=== PATIENT | female | born 1995 | race Caucasian/White ===

== ENCOUNTER 2018-12-19 08:02 | Inpatient (IN) ==
[2018-12-19 07:18] LABS: Basophils # 0.1 K/mcL (0.0-0.2); Basophils % 0.4 %; Eosinophils # 0.1 K/mcL (0.0-0.6); Eosinophils % 0.7 %; Hemoglobin 11.2 g/dL (11.5-15.4); Immature Granulocytes % 1.3 % (0-4); Lymphocytes # 2.3 K/mcL (0.6-4.6); Mean Corpuscular HGB Conc 33.9 g/dL (31.6-35.5); Mean Corpuscular Hemoglobin 29.9 pg (28.0-33.3); Mean Corpuscular Volume 88.2 fL (83.0-100.0); Mean Platelet Volume 11.6 fL (9.4-12.4); Monocytes % 7.2 %; Platelet Count 183 K/mcL (140-400); Red Blood Count 3.74 M/mcL (3.82-4.97); Red Cell Distribution Width 13.4 % (11.5-14.5); Segmented Neutrophils % 73.4 %; White Blood Count 13.6 K/mcL (4.3-11.1)
--- NOTE | 2018-12-19 07:19 | OB/GYN History & Physical ---
Date of Encounter: 12/19/18 Time of Encounter: 07:14 Assessment and Plan (1) 38 weeks gestation of Current visit: Yes Status: Acute admitted for delivery (2) SROM (spontaneous rupture of membranes) Current visit: Yes Status: Acute admitted for delivery speculum exam: + Pooling with clear fluid noted will augment labor with pitocin GBS: Negative History of Present Illness Chief complaint: SROM HPI: Ms. Muhammad is a 23 year old female @ 38w4d presents to labor and delivery with complaints of SROM at 0200. Patient denies any color or odor to fluid. Patient reports irregular contractions. Denies VB. Patient reports good movement. Patient denies any complications with current . Patient receives care with Dr. Willard. Blood type: O Negative Rubella: Immune Hep B: Non-reactive GBS: Negative Past Med Surg Social Fam HX - Past Medical History Source: patient Medical history: no medical history Psychiatric history: no psych history - Past Surgical History Surgical History: no surgical history - Social History Smoking Status: Never smoker Alcohol use: none Drug use: none Current living situation: Home - Independent Recent Out of Country Travel Within the Last 8 Weeks: No Exposure or Possible Exposure to Illness During Travel: No - Family History Mother Living Status: Still Living Hx Family Cardiac Disorders: No Hx Family Respiratory Disorders: No Hx Family Cancer: No Hx Family GI Disorders: No Hx Family Genitourinary Disorders: No Hx Family Endocrine Disorder: No Hx Family Musculoskeletal Disorders: No Hx Family Neuromuscular Disorders: No Hx Family Neurologic Disorders: No Hx Family HEENT Disorders: No Hx Family Autoimmune Disorders: No Hx Family Reproductive Disorders: No Hx Family Psychosocial Disorders: No Hx Family Medical Disorders: No Obstetrical History - Pregnancies : 1 Para: 0 Term: 0 : 0 Ab's: 0 Livin Medications and Allergies Ferrous Sulfate 325 mg PO DAILY 12/19/18 [History] Formula Tablet 1 tab PO DAILY 12/19/18 [History] Allergy/AdvReac Type Severity Reaction Status Date / Time No Known Allergies Allergy Verified 12/19/18 06:11 Review of System OB - Constitutional Constitutional ROS IM: no chills, no fever(s), no headache(s) - Cardiovascular Cardiovascular: no chest pain - Respiratory Respiratory: no cough, no dyspnea - Gastrointestinal Gastrointestinal: no constipation, no diarrhea, no heartburn, no nausea, no vomiting - Genitourinary Genitourinary: vaginal discharge (per HPI), no abnormal vaginal bleeding, no dysuria, no flank pain, no urinary frequency, no urinary hesitancy, no vaginal odor Exam - Vital Signs Vital signs: Initial Vital Signs Resp BP 15 117/72 12/19/18 06:02 12/19/18 06:02 - Constitutional Constitutional: well developed, well nourished, no acute distress, average body habitus - HEENT HEENT: Normocephaly, Mucus Membranes Moist - Neck Neck exam: full ROM, supple - Lungs Respiratory exam: CTAB - Cardiovascular Cardiovascular exam: RRR, +S1, +S2 - Abdomen Abdomen: Present: bowel sounds normal, gravid, non tender - Extremities Extremities exam: full ROM, normal capillary refill, normal inspection Deep Tendon Reflex Grade: 2+ Normal - Cervix Dilation: 3 Effacement: 70 - Uterus Uterus exam: Present: normal size, normal contour - Anus/Rectum Anus/Rectum: Present: normal perianal skin - Comments Comments: FHR 135 bpm moderate variability +15x15 accels no decels noted at this time. Contractions 2-3 min apart. Cat. 1 tracing Results All other labs normal. - VTE Reasons for not Prescribing Prophylaxis: Treatment not Indicated - Low risk for VTE
--- NOTE | 2018-12-19 07:31 | Anesthesia Evaluation PreOp ---
Date of Encounter: 12/19/18 Time of Encounter: 07:16 - Past History Planned Operation: del, G1 38wk SROM Cardiac History: Denies any Significant Hx Pulmonary History: Denies Any Significant HX GLOBAL RISK MANAGEMENT DIRECTOR History: Denies Any Significant HX Other Medical History: Denies Any Significant HX Anesthesia History: No Prior Anesthetic Complications, Past Anesthesia (denies any family comp.) Alcohol Use: none Drug use: none Medications and Allergies Ferrous Sulfate 325 mg PO DAILY 12/19/18 [History] Formula Tablet 1 tab PO DAILY 12/19/18 [History] Allergy/AdvReac Type Severity Reaction Status Date / Time No Known Allergies Allergy Verified 12/19/18 06:11 Anesthesia Results - Labs 12/19/18 06:50 Anesthesia Exam - HEENT Pupil (Motor): Pupils equal Mallampati: II Teeth: Normal Oral Opening: Greater than 3 - GLOBAL RISK MANAGEMENT DIRECTOR LOC: Oriented GLOBAL RISK MANAGEMENT DIRECTOR Motor: Normal RUE, Normal LUE, Normal RLE, Normal LLE, Normal Face GLOBAL RISK MANAGEMENT DIRECTOR Sensory: Normal: RUE, LUE, RLE, LLE, Face - Cardiac Rhythm: Regular Murmur: None - Pulmonary Breath Sounds: bilateral Clear Respiratory Effort: Symmetrical Anesthesia Assess/Plan ASA Score: 2 Level of consciousness: Cooperative, Oriented Anesthetic Plan: General, Spinal, Epidural Monitoring Plan: Standard Monitors Recovery Plan: PACU
[~2018-12-19 08:02] MED LIST: *HR* Nalbuphine 10 MG/ML AMPUL IVP PRN; Epidural Premix (fent/bupiv) 110 ML EP SCH; Famotidine 20 MG/2 ML VIAL IVP PRN; Lidocaine 1% 20 ML MDV INFILT PRN; Metoclopramide 10 MG/2 ML VIAL IVP PRN; Naloxone 0.4 MG/ML INJ IVP PRN; Ondansetron 4 MG/2 ML VIAL IVP PRN; Oxytocin 20 units/ LR 1000 mL 20 UNIT/1,000 ML BAG IVC SCH; Ringers Solution, Lactated 1,000 ML IVC SCH
--- NOTE | 2018-12-19 13:23 | Anesthesia Procedures ---
Date of Encounter: 12/19/18 Time of Encounter: 12:18 Procedures: Anesthesia - Epidural/Spinal Patient ID/Chart reviewed: Yes Patient examined: Yes OB Eval: Gestational age: term OB Eval: : 1 OB Eval: Contractions: Non-stressed pattern Consent Obtained: Yes Supplemental Oxygen: None/Room Air Site Prep: Aseptic Technique, Sterile prep and drape, 0.5% Chlorhexidine/Alcohol Patient position: upright Local Anesthetic: Lidocaine 1% Amount of Local Anesthetic used: 2 Touhy Needle Gauge: 18 Touhy Needle Depth (cm): 6 Catheter Depth at Skin (cm): 10 Test Dose (1.5% Lido + Epi): Volume given (mls): 4 Test Dose Result: Negative Loading Dose: Other: 10ml from solution Loading Dose Administered: Thru Catheter Infusion Med: 0.125% Bupivacaine w/ 2 mcg/ml Fentanyl Infusion Rate (mls/hr): [address]: Tegaderm, Tape Interspace Used: L3-L4 Loss of Resistance (NINA): Yes (saline) Blood: No CSF: Yes (25g purposeful ) Paresthesia: No Procedure: vss though out procedure, FHR stable per team, post procedure mild dec in BP tx with lateral turn, IV fluids, (2) 50mcg joanne IV
--- NOTE | 2018-12-19 14:37 | OB Labor Progress Note ---
Date of Encounter: 12/19/18 Time of Encounter: 14:35 Labor Progress Note - Subjective Subjective: Resting comfortably with epidural in place - Vital Signs Vital Signs: VSS - Cervix Cervix: 9/90/0 - Heart Tones Heart Tones: 120 moderate variability with 15 x 15 accels and variables with contractions - Todd Mission Todd Mission: Contractions every 4 minutes - Plan Plan: Continue routine labor management GBS negative Anticipate vaginal delivery POC per consult with Dr Ku
[2018-12-19] MEDS ORDERED: Propofol 500 MG/50 ML INFUS..BTL ONE (15:57)
[2018-12-19] MEDS ORDERED: Lidocaine/EPI 1:200k 2% PF 20 ML VIAL ONE (15:59)
[2018-12-19] MEDS ORDERED: *HR* Oxytocin 10 UNIT/ML VIAL IM ONE (16:07)
[2018-12-19] MEDS ORDERED: *HR* FentaNYL (PF) 100 MCG/2 ML VIAL ONE (16:12)
[2018-12-19] MEDS ORDERED: *HR* Morphine Sulfate/PF 10 MG/10 ML AMPUL ONE (16:12)
[2018-12-19] MEDS ORDERED: *HR* Succinylcholine 200 MG/10 ML VIAL IVP ONE (16:21)
--- NOTE | 2018-12-19 16:24 | Event Note ---
Date of Encounter: 12/19/18 Time of Encounter: 16:00 Called to room when nurse pushing with patient and tones were down for 3 minutes. Attempted to push with patient without success. Called Dr ku to room at tones down for [address] Ku assumed care at this point.
[2018-12-19] MEDS ORDERED: Ondansetron 4 MG/2 ML VIAL ONE (16:28)
--- NOTE | 2018-12-19 17:27 | Anesthesia Evaluation Post Op ---
Date of Encounter: 12/19/18 Time of Encounter: 17:26 - Vital Signs Vital Signs: vss - Lungs Lungs: Clear Ascult./Percussion - Airway Airway: Non-obstructed - Mental Status Mental Status: Alert & Oriented, Answers Appropriately - Pain Pain Scale used: Jordy (Faces) - Nausea Vomiting Nausea Vomiting: Not Present - Hydration Hydration: Fox catheter - Discharge PostOp Status: Transfer Patient to floor (when criteria met)
[2018-12-19] MEDS ORDERED: *HR* HYDROMORPHONE 2 MG/ML VIAL ONE (17:37)
--- NOTE | 2018-12-19 17:37 | OB/GYN Procedure Note ---
Section - Date of procedure: 12/19/18 Preop diagnosis: category 3 FHT tracing Post-op diagnosis: same Procedure: primary low transverse Surgeon: Taj Ku Quantitated Blood Loss: 400 Was there an billing and accounting staff assistant present: Yes Leasing Specialist: Paul Kirk Anesthesia Type: Epidural section complications: none Disposition: L&D Recovery Room Specimens: Placenta, Cord segment, Cord blood - Narrative Narrative: The patient was taken to the operating room where epidural anesthesia was found to be adequate. The patient was prepped with Betadine and draped in the usual sterile fashion in the dorsal supine position with a left-west tilt. A Pfannenstiel skin incision was made with the scalpel and carried through to the underlying layer of fascia. The fascia was incised in the midline and extended laterally and bluntly. Yelena clamps were used to elevate the superior aspect of the fascial incision, which was elevated, and the underlying rectus muscles were dissected off bluntly. Attention was then turned to the inferior aspect of the fascial incision, which in similar fashion was grasped with Yelena clamps, elevated, and the underlying rectus muscles were dissected off bluntly. The rectus muscles were dissected in the midline. The peritoneum was bluntly dissected, entered, and extended superiorly and inferiorly with good visualization of the bladder. The bladder blade was inserted. The lower uterine segment was incised in a transverse fashion using the scalpel and extended using manual traction. Clear fluid was noted. The infant was subsequently delivered atraumatically. The nose and mouth were bulb suctioned. The cord was clamped and cut. The infant was subsequently handed to the awaiting nursery nurse. The uterus was exteriorized and cleared of all clots and debris. The uterine incision was repaired in 2 layers using 0 vicryl suture. Hemostasis was visualized. The uterus was returned to the abdomen. The uterine incision was reexamined and was noted to be hemostatic. The fascia was closed with 0 Vicryl, and the skin was closed with 4-0 vicryl. Sponge, lap, and instrument counts were correct x2. The patient was stable at the completion of the procedure and was subsequently transferred to the recovery room in stable condition.
[2018-12-19] MEDS ORDERED: CeFAZolin Premix DUPLEX 2,000 MG/50 ML BAG IVPB ONE (19:00)
[2018-12-19] MEDS ORDERED: Rho Immune Globulin 1,500 UNIT SYRINGE IM PRN (20:02)
[2018-12-19] MEDS ORDERED: Ondansetron 4 MG/2 ML VIAL IVP PRN (20:02)
[2018-12-19] MEDS ORDERED: Oxytocin 20 units/ LR 1000 mL 20 UNIT/1,000 ML BAG IVC SCH (20:02)
[2018-12-19] MEDS ORDERED: Simethicone 80 MG TAB.CHEW PO PRN (20:02)
[2018-12-19] MEDS ORDERED: Sennosides 8.6 MG TABLET PO PRN (20:02)
[2018-12-19] MEDS ORDERED: Metoclopramide 10 MG/2 ML VIAL IVP PRN (20:02)
[2018-12-19] MEDS ORDERED: cephALEXin 500 MG CAPSULE PO SCH (21:00)
[2018-12-19] MEDS ORDERED: metroNIDAZOLE 500 MG TABLET PO SCH (21:00)
[2018-12-19] MEDS: cephALEXin 500 MG CAPSULE PO SCH (21:41)
[2018-12-19] MEDS: metroNIDAZOLE 500 MG TABLET PO SCH (22:10)
[2018-12-20] MEDS: Ibuprofen 600 MG TABLET PO PRN ×3 (07:07→20:45)
[2018-12-20] MEDS: *HR* OxyCODONE/APAP 5/325 TABLET PO PRN (07:07)
[2018-12-20 08:14] LABS: Basophils % 0.1 %; Hematocrit 27.5 % (35.3-44.9); Immature Granulocytes % 0.8 % (0-4); Lymphocytes # 0.9 K/mcL (0.6-4.6); Lymphocytes % 4.2 %; Mean Corpuscular HGB Conc 33.5 g/dL (31.6-35.5); Mean Corpuscular Hemoglobin 29.5 pg (28.0-33.3); Mean Corpuscular Volume 88.1 fL (83.0-100.0); Mean Platelet Volume 11.1 fL (9.4-12.4); Monocytes # 1.5 K/mcL (0.0-1.3); Monocytes % 7.4 %; Neutrophils # 17.9 K/mcL (1.6-8.9); Platelet Count 148 K/mcL (140-400); Red Blood Count 3.12 M/mcL (3.82-4.97); Red Cell Distribution Width 13.4 % (11.5-14.5); Segmented Neutrophils % 87.5 %
[2018-12-20 08:16] LABS: Hemoglobin 9.2 g/dL (11.5-15.4); White Blood Count 20.4 K/mcL (4.3-11.1)
[2018-12-20] MEDS ORDERED: Prenatal Vit/FA 1 EACH TABLET PO SCH (09:00)
[2018-12-20] MEDS: cephALEXin 500 MG CAPSULE PO SCH ×3 (09:38→20:44)
[2018-12-20] MEDS: Prenatal Vit/FA 1 EACH TABLET PO SCH (09:38)
--- NOTE | 2018-12-20 10:19 | OB/GYN Progress Note ---
Date of Encounter: 12/20/18 Time of Encounter: 10:17 - Assessment and Plan (1) 38 weeks gestation of Current Visit: Yes Status: Acute admitted for delivery (2) SROM (spontaneous rupture of membranes) Current Visit: Yes Status: Acute admitted for delivery speculum exam: + Pooling with clear fluid noted will augment labor with pitocin GBS: Negative (3) S/P primary low transverse Current Visit: Yes Status: Acute continue routine care anticipate discharge home tomorrow (4) anemia Current Visit: Yes Status: Acute continue ferrous sulfate po daily Subjective - Subjective Principal diagnosis: Patient is postop/ day 1 Interval history: Patient is status post primary c/s for intolerance of labor with a 6 min long deceleration. Patient is ambulating and passing flatus. She denies feeling dizzy or lightheaded with ambulation. Patient reports: appetite normal, voiding normally, pain well controlled, ambulating normally Dorothy: doing well, bottle feeding Objective - Vital Signs Latest vital signs: Vital Signs Temp Pulse Resp BP Pulse Ox 12/20/18 08:17 99.2 F 103 16 114/64 96 12/20/18 06:35 98.2 F 91 16 103/60 96 12/19/18 23:54 99.2 F 100 18 106/62 97 12/19/18 22:00 99.2 F 92 18 116/65 97 12/19/18 21:10 99.4 F 97 14 107/64 97 12/19/18 20:35 99.2 F 87 14 104/66 98 12/19/18 20:00 83 16 110/75 99 Intake and Output 12/19/18 12/20/18 12/20/18 23:59 07:59 15:59 Intake Total 200 / 200 Output Total 900 / 900 1200 / 1200 Balance -900 / -900 -1000 / -1000 Intake: Oral 200 / 200 Output: Catheter 900 / 900 1200 / 1200 Other: Weight 65.68 kg Patient Weight 12/20/18 23:59 Weight 65.68 kg - Exam Lungs: bilateral: normal Chest: Normal S1, Normal S2 Extremities: Present: normal Abdomen: Present: normal appearance, soft, gravid Incision: Present: normal, dry, dressed (medipore dressing) Uterus: Present: normal, firm Fundal Height: 3 (U/3) - Labs Labs: Laboratory Results - last 24 hr 12/19/18 12/20/18 17:28 07:47 WBC 20.4 H RBC 3.12 L Hgb 9.2 L D Hct 27.5 L MCV 88.1 MCH 29.5 MCHC 33.5 RDW 13.4 Plt Count 148 MPV 11.1 Immature Gran % 0.8 Seg Neutrophils % 87.5 Lymphocytes % 4.2 Monocytes % 7.4 Eosinophils % 0.0 Basophils % 0.1 Neutrophils # 17.9 H Lymphocytes # 0.9 Monocytes # 1.5 H Eosinophils # 0.0 Basophils # 0.0 Screen NEGATIVE Baby's Blood Type B RH POSITIVE Mother's Blood Type O RH NEGATIVE Rhogam Indicated YES Rhogam Req for Mother 1
[2018-12-20] MEDS: metroNIDAZOLE 500 MG TABLET PO SCH ×3 (11:10→20:44)
[2018-12-21] MEDS: *HR* OxyCODONE/APAP 5/325 TABLET PO PRN (00:03)
[2018-12-21 08:28] LABS: Basophils % 0.2 %; Eosinophils # 0.1 K/mcL (0.0-0.6); Eosinophils % 0.5 %; Hematocrit 25.5 % (35.3-44.9); Hemoglobin 8.3 g/dL (11.5-15.4); Immature Granulocytes % 0.9 % (0-4); Lymphocytes # 1.6 K/mcL (0.6-4.6); Lymphocytes % 8.1 %; Mean Corpuscular HGB Conc 32.5 g/dL (31.6-35.5); Mean Corpuscular Hemoglobin 29.5 pg (28.0-33.3); Mean Corpuscular Volume 90.7 fL (83.0-100.0); Mean Platelet Volume 10.6 fL (9.4-12.4); Monocytes # 1.2 K/mcL (0.0-1.3); Monocytes % 6.3 %; Platelet Count 156 K/mcL (140-400); Red Blood Count 2.81 M/mcL (3.82-4.97); Red Cell Distribution Width 13.6 % (11.5-14.5); White Blood Count 19.1 K/mcL (4.3-11.1)
--- NOTE | 2018-12-21 09:11 | Discharge Summary ---
Date of Encounter: 12/21/18 Time of Encounter: 09:09 - Discharge Diagnosis (1) S/P primary low transverse Priority: Primary Status: Acute Comments: Patient meeting day two milestones. Pain well-controlled with prescribed medications. Voiding without difficulty, tolerating regular diet, bleeding light. No bowel movement yet. Anticipate discharge today (2) Breast feeding status of mother Priority: Secondary Status: Acute Comments: support as needed. Patient states she has a breast pump at home (3) Acute blood loss as cause of postoperative anemia Priority: Secondary Status: Acute Comments: Send home with twice daily iron prescription - Discharge Medications Prescriptions: New Docusate [Colace] 100 mg PO BID #60 capsule Ferrous Sulfate 325 mg PO BID #60 tablet Simethicone [Gas-X] 80 mg PO TID PRN tab.chew PRN Reason: Dyspepsia Ibuprofen [Motrin] 600 mg PO Q6HR PRN #60 tablet PRN Reason: Cramping OxyCODONE/APAP 5/325 [Percocet 5/325 MG] 1 each PO Q6H PRN 7 Days #28 tablet PRN Reason: Moderate pain 4-6 Continued Formula Tablet 1 tab PO DAILY Discontinued Ferrous Sulfate 325 mg PO DAILY Home Medications: Formula Tablet 1 tab PO DAILY 12/19/18 [History] Docusate [Colace] 100 mg PO BID #60 capsule 12/21/18 [Rx] Ferrous Sulfate 325 mg PO BID #60 tablet 12/21/18 [Rx] Ibuprofen [Motrin] 600 mg PO Q6HR PRN #60 tablet 12/21/18 [Rx] OxyCODONE/APAP 5/325 [Percocet 5/325 MG] 1 each PO Q6H PRN 7 Days #28 tablet 12/21/18 [Rx] Simethicone [Gas-X] 80 mg PO TID PRN tab.chew 12/21/18 [Rx] Allergies/Adverse Reactions: Allergy/AdvReac Type Severity Reaction Status Date / Time No Known Allergies Allergy Verified 12/19/18 06:11 Data Procedures and tests throughout hospitalization: Laboratory Tests 12/19/18 12/19/18 12/20/18 06:50 17:28 07:47 WBC 13.6 H 20.4 H RBC 3.74 L 3.12 L Hgb 11.2 L 9.2 L D Hct 33.0 L 27.5 L MCV 88.2 88.1 MCH 29.9 29.5 MCHC 33.9 33.5 RDW 13.4 13.4 Plt Count 183 148 MPV 11.6 11.1 Immature Gran % 1.3 0.8 Seg Neutrophils % 73.4 87.5 Lymphocytes % 17.0 4.2 Monocytes % 7.2 7.4 Eosinophils % 0.7 0.0 Basophils % 0.4 0.1 Neutrophils # 10.0 H 17.9 H Lymphocytes # 2.3 0.9 Monocytes # 1.0 1.5 H Eosinophils # 0.1 0.0 Basophils # 0.1 0.0 Screen NEGATIVE Baby's Blood Type B RH POSITIVE Mother's Blood Type O RH NEGATIVE Rhogam Indicated YES Rhogam Req for Mother 1 12/21/18 07:59 WBC 19.1 H RBC 2.81 L Hgb 8.3 L Hct 25.5 L MCV 90.7 MCH 29.5 MCHC 32.5 RDW 13.6 Plt Count 156 MPV 10.6 Immature Gran % 0.9 Seg Neutrophils % 84.0 Lymphocytes % 8.1 Monocytes % 6.3 Eosinophils % 0.5 Basophils % 0.2 Neutrophils # 16.0 H Lymphocytes # 1.6 Monocytes # 1.2 Eosinophils # 0.1 Basophils # 0.0 Screen Baby's Blood Type Mother's Blood Type Rhogam Indicated Rhogam Req for Mother Labs on day of discharge: Labs from last 24 hours 12/21/18 07:59 WBC 19.1 H RBC 2.81 L Hgb 8.3 L Hct 25.5 L MCV 90.7 MCH 29.5 MCHC 32.5 RDW 13.6 Plt Count 156 MPV 10.6 Immature Gran % 0.9 Seg Neutrophils % 84.0 Lymphocytes % 8.1 Monocytes % 6.3 Eosinophils % 0.5 Basophils % 0.2 Neutrophils # 16.0 H Lymphocytes # 1.6 Monocytes # 1.2 Eosinophils # 0.1 Basophils # 0.0 - Impressions ITS Impressions KUB X-Ray 12/19/18 16:13 IMPRESSION: No evidence for retained surgical instrument. Fox catheter present. D/ / Marcus Rg / Marcus Rg Interpreting Provider: Marcus Rg Date of admission: 12/19/18 08:06 Discharging clinician: Kathrine Alegre Anticipated date of discharge: 12/21/18 - Patient Status Disposition: Home, Self-Care Condition: Good Functional capacity at discharge: independent ambulation Overall status at discharge: patient is progressing back to baseline - Discharge Instructions - Diet and Activity Activity: resume usual activities as tolerated Diet: regular diet Hospital Course Reason for admission: rupture of membranes Delivery: section Episiotomy: none Laceration: none Other procedures: none complications: none Discharge diagnosis: IUP at term delivered baby: male Hospital course: Date of procedure: 12/19/18 Preop diagnosis: category 3 FHT tracing Post-op diagnosis: same Procedure: primary low transverse Surgeon: Taj Brito Blood Loss: 400 Was there an tax accounting assistant present: Yes Agricultural Engineering Technicians: Paul Kirk Anesthesia Type: Epidural section complications: none Disposition: L&D Recovery Room Specimens: Placenta, Cord segment, Cord blood - Narrative Narrative: The patient was taken to the operating room where epidural anesthesia was found to be adequate. The patient was prepped with Betadine and draped in the usual sterile fashion in the dorsal supine position with a left-west tilt. A Pfannenstiel skin incision was made with the scalpel and carried through to the underlying layer of fascia. The fascia was incised in the midline and extended laterally and bluntly. Yelena clamps were used to elevate the superior aspect of the fascial incision, which was elevated, and the underlying rectus muscles were dissected off bluntly. Attention was then turned to the inferior aspect of the fascial incision, which in similar fashion was grasped with Yelena clamps, elevated, and the underlying rectus muscles were dissected off bluntly. The rectus muscles were dissected in the midline. The peritoneum was bluntly dissected, entered, and extended superiorly and inferiorly with good visualization of the bladder. The bladder blade was inserted. The lower uterine segment was incised in a transverse fashion using the scalpel and extended using manual traction. Clear fluid was noted. The infant was subsequently delivered atraumatically. The nose and mouth were bulb suctioned. The cord was clamped and cut. The infant was subsequently handed to the awaiting nursery nurse. The uterus was exteriorized and cleared of all clots and debris. The uterine incision was repaired in 2 layers using 0 vicryl suture. Hemostasis was visualized. The uterus was returned to the abdomen. The uterine incision was reexamined and was noted to be hemostatic. The fascia was closed with 0 Vicryl, and the skin was closed with 4-0 vicryl. Sponge, lap, and instrument counts were correct x2. The patient was stable at the completion of the procedure and was subsequently transferred to the recovery room in stable condition. Time Attestation: Total time spent providing and/or coordinating discharge services: Time Spent: Less than 30 minutes - VTE Reasons for not Prescribing Prophylaxis: Treatment not Indicated - Low risk for VTE Documentation of Mechanical Device: Intermittent pneumatic compression device Exam - Constitutional Vitals: Temp Pulse Resp BP Pulse Ox 98.1 F 88 16 110/63 96 12/20/18 21:45 12/20/18 21:45 12/20/18 21:45 12/20/18 21:45 12/20/18 21:45 General appearance IM: A&O X 3, pleasant, no acute distress, answers questions appropriately - Respiratory Respiratory exam: Present: CTAB. Absent: respiratory distress - Cardiovascular Cardiovascular exam IM: Present: RRR, +S1, +S2. Absent: irregular rhythm - GI/Abdominal GI/Abdominal exam IM: normal bowel sounds, soft Incision: dry (surgical dressing), intact - Rectal Rectal exam: deferred - External exam: normal external exam Uterine Tone: Firm Uterus Position: At Umbilicus, Midline - Extremities Exam Extremities exam IM: Present: full ROM, normal capillary refill, normal inspection. Absent: calf tenderness - Neurological Exam Neurological exam: alert, normal gait, oriented X3
[2018-12-21] MEDS: Ibuprofen 600 MG TABLET PO PRN (09:26)
[2018-12-21] MEDS: Prenatal Vit/FA 1 EACH TABLET PO SCH (09:27)
[2018-12-21] MEDS: metroNIDAZOLE 500 MG TABLET PO SCH (09:28)
[2018-12-21] MEDS: cephALEXin 500 MG CAPSULE PO SCH (09:28)
[2018-12-21 09:51] VITALS: BP 112/68
== END 2018-12-21 10:43 | disposition home or self-care (01) | DRG 787 ==
LOC: 1NENULAB → 1NENUOBS 20:01
PROVIDERS: ADMIT Registered Nurse; ATTEND Registered Nurse